=== PATIENT | female | born 1990 | race Caucasian/White ===

== ENCOUNTER 2017-09-02 06:22 | Inpatient (IN) ==
[2017-09-02] MEDS ORDERED: OXYTOCIN/LR 20 UNIT/1,000 ML BAG IV SCH (07:30)
[2017-09-02] MEDS ORDERED: BUTORPHANOL 1 MG/ML VIAL IV PRN (07:30)
[2017-09-02] MEDS ORDERED: ONDANSETRON 4 MG/2 ML VIAL IV PRN ×2 (07:30→19:53)
[2017-09-02] MEDS: LACTATED RINGERS 1,000 ML IV SCH ×3 (07:35→19:41)
[2017-09-02] MEDS: AMPICILLIN INJ 2,000 MG in SODIUM CHLORIDE 0.9% 100 ML IV SCH ×2 (08:14→14:31)
[2017-09-02 08:39] LABS: Basophils # 0.1 10*3/uL (0.0-0.2); Basophils % 0.3 % (0.0-0.8); Eosinophils # 0.1 10*3/uL (0.0-0.87); Eosinophils % 0.8 % (0.00-10.9); Hemoglobin 12.4 GM/DL (12.0-16.0); Immature Granulocytes % 1.9 %; Immature Granulocytes Absolute 0.28 #; Lymphocytes # 1.9 10*3/uL (1.4-4.0); Lymphocytes % 12.2 % (21.3-54.2); Mean Corpuscular HGB Conc 34.4 GM/DL (32-36); Mean Corpuscular Hemoglobin 31 PG (27-34); Mean Corpuscular Volume 90.9 FL (87-102); Mean Platelet Volume 9.9 FL (9.6-12.0); Monocytes % 6.4 % (1.7-12.7); Neutrophils # 11.9 10*3/uL (1.4-7.4); Neutrophils % 78.4 % (38.7-73.9); Platelet Count 274 T/CUMM (130-400); Red Blood Count 3.96 MC/CUMM (3.8-5.5); Red Cell Distribution Width 13.3 % (9.3-17.3); White Blood Count 15.1 T/CUMM (4-12)
[2017-09-02] MEDS ORDERED: CITRIC ACID/SODIUM CITRATE 30 ML UDCUP PO ONE (10:11)
[2017-09-02] MEDS ORDERED: PROMETHAZINE 25 MG/1 ML VIAL IM ONE (10:11)
[2017-09-02] MEDS ORDERED: diphenhydrAMINE 50 MG/1 ML VIAL IV PRN ×2 (10:11)
[2017-09-02] MEDS ORDERED: ePHEDrine 50 MG/ML AMP IV PRN (10:11)
[2017-09-02] MEDS ORDERED: hydrOXYzine HCL 25 MG/1 ML VIAL IM PRN (10:11)
[2017-09-02] MEDS ORDERED: FAMOTIDINE 20 MG/2 ML VIAL IV ONE (10:11)
[2017-09-02] MEDS ORDERED: ONDANSETRON 4 MG/2 ML VIAL IV ONE (10:11)
[2017-09-02] MEDS ORDERED: fentaNYL 2 MCG/ROPIV 0.2% EPID 150 ML EPIDURAL SCH (10:30)
[2017-09-02 19:14] LABS: Apearance,Urine CLEAR (Clear); Bilirubin,Urine Negative (Negative); Blood, Urine Moderate mg/dL (Negative); Glucose,Urine (UA) Negative (Negative); Ketones,Urine 80 mg/dL (Negative); Nitrite,Urine Negative (Negative); Protein,Urine Negative; RBC,Urine 4 /HPF (0-4); Squamous Epithelial Cell,Urine Occasional /HPF (0-10); Urine Color Yellow (Yellow); Urine Specific Gravity 1.011 (1.001-1.035); Urine Urobilinogen < 2.0 EU/DL (0.2-1.0); WBC,Urine 1 /HPF (0-6)
[2017-09-02] MEDS ORDERED: RHO(D) IMMUNE GLOBULIN 300 MCG SYRINGE IM ONE (19:53)
[2017-09-02] MEDS ORDERED: LANOLIN 50% CREAM 0.3 OZ TUBE TOP PRN (19:53)
[2017-09-02] MEDS ORDERED: BISACODYL 10 MG SUPP RECTAL PRN (19:53)
[2017-09-02] MEDS ORDERED: ACETAMINOPHEN 325 MG TABLET PO PRN (19:53)
[2017-09-02] MEDS ORDERED: OXYTOCIN/LR 20 UNIT/1,000 ML BAG IV ONE (19:53)
[2017-09-02] MEDS ORDERED: BENZOCAINE 20%/MENTHOL 0.5% SPRAY 56 GM CAN TOP PRN (19:53)
[2017-09-02] MEDS ORDERED: MEASLES/MUMPS/RUBELLA VACCINE 0.5 ML VIAL SUBCUT ONE (19:53)
[2017-09-02] MEDS ORDERED: WITCH HAZEL PADS 100/JAR TOP PRN (19:53)
[2017-09-02] MEDS ORDERED: oxyCODONE/ACETAMINOPHEN 5-325 MG TABLET PO PRN ×2 (19:53)
[2017-09-02] MEDS ORDERED: DIPH/TET/ACEL PERT BOOSTER VACCINE 0.5 ML VIAL IM ONE (19:53)
[2017-09-02] MEDS ORDERED: HYDROCORTISONE 2.5% RECTAL CREAM 30 GM TUBE TOP PRN (19:53)
[2017-09-03] MEDS: IBUPROFEN 800 MG TABLET PO PRN ×4 (00:46→18:27)
[2017-09-03 07:05] LABS: Basophils # 0.1 10*3/uL (0.0-0.2); Basophils % 0.3 % (0.0-0.8); Eosinophils # 0.2 10*3/uL (0.0-0.87); Eosinophils % 0.9 % (0.00-10.9); Hematocrit 31.1 VOL% (35.7-47.0); Hemoglobin 10.7 GM/DL (12.0-16.0); Immature Granulocytes % 1.2 %; Immature Granulocytes Absolute 0.22 #; Lymphocytes # 2.6 10*3/uL (1.4-4.0); Lymphocytes % 13.8 % (21.3-54.2); Mean Corpuscular HGB Conc 34.4 GM/DL (32-36); Mean Corpuscular Hemoglobin 32 PG (27-34); Mean Corpuscular Volume 91.7 FL (87-102); Mean Platelet Volume 9.7 FL (9.6-12.0); Monocytes # 1.2 10*3/uL (0.11-0.8); Monocytes % 6.1 % (1.7-12.7); Neutrophils # 14.6 10*3/uL (1.4-7.4); Neutrophils % 77.7 % (38.7-73.9); Platelet Count 231 T/CUMM (130-400); Red Blood Count 3.39 MC/CUMM (3.8-5.5); Red Cell Distribution Width 13.4 % (9.3-17.3); White Blood Count 18.7 T/CUMM (4-12)
[2017-09-03] MEDS: DOCUSATE SODIUM 100 MG CAPSULE PO SCH ×2 (09:00→20:53)
[2017-09-04 07:17] VITALS: BP 115/76
[2017-09-04] MEDS: DOCUSATE SODIUM 100 MG CAPSULE PO SCH (08:33)
== END 2017-09-04 11:35 | disposition home or self-care (01) | DRG 775 ==
LOC: N.LDOUT 06:22 → N.LD 06:24 → N.OB 22:52
PROVIDERS: ADMIT Obstetrics & Gynecology; ATTEND Obstetrics & Gynecology

== ENCOUNTER 2020-04-25 06:08 | Inpatient (IN) ==
[2020-04-25] MEDS ORDERED: BUTORPHANOL 1 MG/ML VIAL IV PRN (06:15)
[2020-04-25] MEDS ORDERED: ONDANSETRON 4 MG/2 ML VIAL IV PRN ×2 (06:15→17:25)
[2020-04-25] MEDS ORDERED: LACTATED RINGERS 1,000 ML IV ONE (06:15)
[2020-04-25] MEDS ORDERED: OXYTOCIN/LR 20 UNIT/1,000 ML BAG IV SCH (07:00)
[2020-04-25 07:12] LABS: Basophils # 0.1 10*3/uL (0.0-0.2); Basophils % 0.4 % (0.0-0.8); Eosinophils # 0.2 10*3/uL (0.0-0.87); Eosinophils % 1.3 % (0.00-10.9); Hematocrit 34.5 VOL% (35.7-47.0); Hemoglobin 11.9 GM/DL (12.0-16.0); Immature Granulocytes % 2.3 %; Immature Granulocytes Absolute 0.27 #; Lymphocytes # 1.5 10*3/uL (1.4-4.0); Mean Corpuscular HGB Conc 34.5 GM/DL (32-36); Mean Corpuscular Volume 91.8 FL (87-102); Mean Platelet Volume 9.3 FL (9.6-12.0); Monocytes % 7.1 % (1.7-12.7); Neutrophils % 75.9 % (38.7-73.9); Platelet Count 212 T/CUMM (130-400); Red Blood Count 3.76 MC/CUMM (3.8-5.5); Red Cell Distribution Width 13.1 % (9.3-17.3); White Blood Count 11.9 T/CUMM (4-12)
[2020-04-25] MEDS: LACTATED RINGERS 1,000 ML IV SCH ×2 (07:19→10:12)
[2020-04-25 07:50] LABS: Alanine Aminotransferase 14 U/L (13-56); Albumin 2.7 G/DL (3.4-5.0); Alkaline Phosphatase 122 U/L (45-117); Aspartate Amino Transferase 12 U/L (0-37); Bilirubin,Total < 0.39 MG/DL (0.2-1.0); Blood Urea Nitrogen 7 MG/DL (7-18); Calcium 8.7 MG/DL (8.5-10.1); Estimated Glom Filtration Rate 127 ML/MIN; Glucose 76 MG/DL (74-106); Osmolality,Calculated 275.4 MOS/KG (273-304); Total Protein 6.4 G/DL (6.4-8.3)
[2020-04-25] MEDS ORDERED: ePHEDrine 50 MG/ML VIAL IV PRN (09:20)
[2020-04-25] MEDS ORDERED: NALOXONE 0.4 MG/ML VIAL IV PRN (09:20)
[2020-04-25] MEDS ORDERED: FAMOTIDINE 20 MG/2 ML VIAL IV ONE (09:21)
[2020-04-25] MEDS ORDERED: CITRIC ACID/SODIUM CITRATE 30 ML UDCUP PO ONE (09:21)
[2020-04-25] MEDS ORDERED: fentaNYL 2 MCG/ROPIV 0.2% EPID 100 ML EPIDURAL SCH (09:30)
[2020-04-25 13:42] LABS: Urine Appearance Clear (Clear); Urine Color Light Yellow (Yellow); Urine Specific Gravity 1.005 (1.001-1.035)
[2020-04-25 13:44] LABS: Glucose,Urine (UA) Negative (Negative); Ketones,Urine Negative (Negative); Protein,Urine Negative
[2020-04-25 13:45] LABS: Bilirubin,Urine Negative (Negative); Blood, Urine Negative (Negative); Nitrite,Urine Negative (Negative); Urine Urobilinogen < 2.0 EU/DL (0.2-1.0)
[2020-04-25] MEDS ORDERED: TRANEXAMIC ACID 1,000 MG/10 ML VIAL ONE (15:46)
[2020-04-25] MEDS ORDERED: CARBOPROST TROMETHAMINE 250 MCG/ML AMP IM ONE (15:46)
[2020-04-25] MEDS ORDERED: METHYLERGONOVINE 0.2 MG/1 ML AMP ONE (15:46)
[2020-04-25] MEDS ORDERED: miSOPROStoL 200 MCG TABLET ONE (15:46)
[2020-04-25] MEDS ORDERED: OXYTOCIN 10 UNIT/ML VIAL ONE (15:47)
[2020-04-25] MEDS ORDERED: miSOPROStoL 200 MCG TABLET PO ONE (17:06)
[2020-04-25 17:17] LABS: Cord Venous Blood HCO3 20.9 MMOL/L; Cord Venous Blood PCO2 40.2 MMHG; Cord Venous Blood PO2 27.7
[2020-04-25] MEDS ORDERED: IBUPROFEN 800 MG TABLET PO ONE (17:19)
[2020-04-25] MEDS ORDERED: RHO(D) IMMUNE GLOBULIN 300 MCG SYRINGE IM ONE (17:25)
[2020-04-25] MEDS ORDERED: oxyCODONE/ACETAMINOPHEN 5-325 MG TABLET PO PRN ×2 (17:25)
[2020-04-25] MEDS ORDERED: ACETAMINOPHEN 325 MG TABLET PO PRN ×2 (17:25→17:36)
[2020-04-25] MEDS ORDERED: BISACODYL 10 MG SUPP RECTAL PRN (17:25)
[2020-04-25] MEDS ORDERED: OXYTOCIN/LR 20 UNIT/1,000 ML BAG IV ONE (17:25)
[2020-04-25] MEDS ORDERED: MEASLES/MUMPS/RUBELLA VACCINE 0.5 ML VIAL SUBCUT ONE (17:25)
[2020-04-25] MEDS ORDERED: DIPH/TET/ACEL PERT BOOSTER VACCINE 0.5 ML VIAL IM ONE (17:25)
[2020-04-25] MEDS ORDERED: BENZOCAINE 20%/MENTHOL 0.5% SPRAY 56 GM CAN TOP PRN (17:25)
[2020-04-25] MEDS ORDERED: HYDROCORTISONE 2.5% RECTAL CREAM 30 GM TUBE TOP PRN (17:25)
[2020-04-25] MEDS ORDERED: LANOLIN 50% CREAM 0.3 OZ TUBE TOP PRN (17:25)
[2020-04-25] MEDS ORDERED: WITCH HAZEL PADS 100/JAR TOP PRN (17:25)
[2020-04-25] MEDS ORDERED: MEPERIDINE 50 MG/1 ML VIAL IV ONE (17:41)
[2020-04-25] MEDS ORDERED: MEPERIDINE 50 MG/1 ML VIAL ONE (17:42)
[2020-04-25] MEDS: DOCUSATE SODIUM 100 MG CAPSULE PO SCH (22:11)
[2020-04-26] MEDS: IBUPROFEN 800 MG TABLET PO PRN ×3 (01:49→16:56)
[2020-04-26 04:49] LABS: Basophils % 0.2 % (0.0-0.8); Eosinophils # 0.2 10*3/uL (0.0-0.87); Hematocrit 35.8 VOL% (35.7-47.0); Hemoglobin 11.4 GM/DL (12.0-16.0); Immature Granulocytes % 1.2 %; Immature Granulocytes Absolute 0.19 #; Lymphocytes # 2.1 10*3/uL (1.4-4.0); Lymphocytes % 13.6 % (21.3-54.2); Mean Corpuscular HGB Conc 31.8 GM/DL (32-36); Mean Corpuscular Volume 96.5 FL (87-102); Mean Platelet Volume 9.3 FL (9.6-12.0); Monocytes % 5.7 % (1.7-12.7); Neutrophils % 78.3 % (38.7-73.9); Platelet Count 230 T/CUMM (130-400); Red Blood Count 3.71 MC/CUMM (3.8-5.5); White Blood Count 15.6 T/CUMM (4-12)
[2020-04-26] MEDS: DOCUSATE SODIUM 100 MG CAPSULE PO SCH (10:05)
[2020-04-26 14:12] VITALS: BP 121/59
== END 2020-04-26 18:15 | disposition home or self-care (01) | DRG 807 ==
LOC: N.LD 06:08 → N.OB 21:45
PROVIDERS: ADMIT Obstetrics & Gynecology; ATTEND Obstetrics & Gynecology

== ENCOUNTER 2022-01-05 06:07 | Inpatient (IN) ==
[2022-01-05] MEDS ORDERED: LACTATED RINGERS 500 ML IV PRN (06:35)
[2022-01-05] MEDS ORDERED: BUTORPHANOL 2 MG/ML VIAL IV PRN (06:35)
[2022-01-05] MEDS ORDERED: miSOPROStoL 200 MCG TABLET RECTAL PRN (06:35)
[2022-01-05] MEDS ORDERED: LACTATED RINGERS 250 ML IV ONE (06:35)
[2022-01-05] MEDS ORDERED: METHYLERGONOVINE 0.2 MG/1 ML AMP IM PRN (06:35)
[2022-01-05] MEDS ORDERED: OXYTOCIN/LR 20 UNIT/1,000 ML BAG IV ONE ×2 (06:35→18:36)
[2022-01-05] MEDS ORDERED: MEPERIDINE 50 MG/1 ML VIAL IV PRN (06:35)
[2022-01-05] MEDS ORDERED: ONDANSETRON 4 MG/2 ML VIAL IV PRN ×2 (06:35→18:36)
[2022-01-05] MEDS ORDERED: TRANEXAMIC ACID 1,000 MG in SODIUM CHLORIDE 0.9% 100 ML IV PRN (06:35)
[2022-01-05] MEDS ORDERED: CARBOPROST TROMETHAMINE 250 MCG/ML AMP IM PRN (06:35)
[2022-01-05] MEDS: LACTATED RINGERS 1,000 ML IV SCH ×2 (06:40→14:22)
[2022-01-05 07:24] LABS: Basophils % 0.2 % (0.0-0.8); Eosinophils # 0.1 10*3/uL (0.0-0.87); Eosinophils % 0.8 % (0.00-10.9); Hematocrit 34.9 VOL% (35.7-47.0); Hemoglobin 11.7 GM/DL (12.0-16.0); Immature Granulocytes % 1.2 %; Lymphocytes # 1.5 10*3/uL (1.4-4.0); Mean Corpuscular HGB Conc 33.5 GM/DL (32-36); Mean Corpuscular Volume 93.3 FL (87-102); Mean Platelet Volume 9.4 FL (9.6-12.0); Monocytes # 0.5 10*3/uL (0.11-0.8); Monocytes % 6.3 % (1.7-12.7); Neutrophils % 73.5 % (38.7-73.9); Platelet Count 248 T/CUMM (130-400); Red Blood Count 3.74 MC/CUMM (3.8-5.5); Red Cell Distribution Width 13.1 % (9.3-17.3); White Blood Count 8.4 T/CUMM (4-12)
[2022-01-05] MEDS ORDERED: OXYTOCIN/LR 20 UNIT/1,000 ML BAG IV SCH (11:30)
[2022-01-05] MEDS ORDERED: LACTATED RINGERS 1,000 ML IV ONE (12:32)
[2022-01-05] MEDS ORDERED: ePHEDrine 50 MG/ML VIAL IV PRN (12:32)
[2022-01-05] MEDS ORDERED: CITRIC ACID/SODIUM CITRATE 30 ML UDCUP PO ONE (12:32)
[2022-01-05] MEDS ORDERED: FAMOTIDINE 20 MG/2 ML VIAL IV ONE (12:32)
[2022-01-05] MEDS ORDERED: PROMETHAZINE 25 MG/1 ML VIAL IM ONE (12:33)
[2022-01-05] MEDS ORDERED: NALOXONE 0.4 MG/ML VIAL IV PRN (12:33)
[2022-01-05] MEDS ORDERED: hydrOXYzine HCL 25 MG/1 ML VIAL IM PRN (12:33)
[2022-01-05] MEDS ORDERED: diphenhydrAMINE 50 MG/1 ML VIAL IV PRN ×2 (12:33)
[2022-01-05] MEDS ORDERED: fentaNYL 2 MCG/ROPIV 0.2% EPID 100 ML EPIDURAL SCH (13:00)
[2022-01-05] MEDS ORDERED: LACTATED RINGERS 1,000 ML IV SCH (13:00)
[2022-01-05 15:02] LABS: Bacteria,Urine Occasional /HPF (Few); Mucus,Urine Occasional /LPF (Occasional); RBC,Urine <1 /HPF (0-4)
[2022-01-05 15:03] LABS: Bilirubin,Urine Negative (Negative); Blood, Urine Negative (Negative); Glucose,Urine (UA) Negative (Negative); Ketones,Urine 40 mg/dL (Negative); Nitrite,Urine Negative (Negative); Protein,Urine Negative (Negative); Urine Appearance Clear (Clear); Urine Color Yellow (Yellow); Urine Specific Gravity 1.015 (1.001-1.035); Urine Urobilinogen 0.2 eU/dL (<2.0); Urine pH 7.5 (4.5-8.0)
[2022-01-05 18:35] LABS: Cord Arterial Blood HCO3 20.1 MMOL/L
[2022-01-05] MEDS ORDERED: RHO(D) IMMUNE GLOBULIN 300 MCG SYRINGE IM ONE (18:36)
[2022-01-05] MEDS ORDERED: HYDROCORTISONE 2.5% RECTAL CREAM 30 GM TUBE TOP PRN (18:36)
[2022-01-05] MEDS ORDERED: BISACODYL 10 MG SUPP RECTAL PRN (18:36)
[2022-01-05] MEDS ORDERED: oxyCODONE/ACETAMINOPHEN 5-325 MG TABLET PO PRN ×2 (18:36)
[2022-01-05] MEDS ORDERED: MEASLES/MUMPS/RUBELLA VACCINE 0.5 ML VIAL SUBCUT ONE (18:36)
[2022-01-05] MEDS ORDERED: DIPH/TET/ACEL PERT BOOSTER VACCINE 0.5 ML VIAL IM ONE (18:36)
[2022-01-05] MEDS ORDERED: WITCH HAZEL PADS 100/JAR TOP PRN (18:36)
[2022-01-05] MEDS ORDERED: BENZOCAINE 20%/MENTHOL 0.5% SPRAY 56 GM CAN TOP PRN (18:36)
[2022-01-05] MEDS ORDERED: ACETAMINOPHEN 325 MG TABLET PO PRN (18:36)
[2022-01-05] MEDS ORDERED: LANOLIN 50% CREAM 0.3 OZ TUBE TOP PRN (18:36)
[2022-01-05 18:38] LABS: Cord Venous Blood HCO3 20.4 MMOL/L; Cord Venous Blood PCO2 42.2 MMHG
[2022-01-06] MEDS: IBUPROFEN 800 MG TABLET PO PRN ×3 (04:20→19:50)
[2022-01-06 05:38] LABS: Basophils % 0.2 % (0.0-0.8); Eosinophils # 0.1 10*3/uL (0.0-0.87); Eosinophils % 0.6 % (0.00-10.9); Hematocrit 31.7 VOL% (35.7-47.0); Hemoglobin 10.8 GM/DL (12.0-16.0); Immature Granulocytes Absolute 0.11 #; Lymphocytes # 1.7 10*3/uL (1.4-4.0); Lymphocytes % 14.9 % (21.3-54.2); Mean Corpuscular HGB Conc 34.1 GM/DL (32-36); Mean Corpuscular Volume 91.9 FL (87-102); Mean Platelet Volume 9.4 FL (9.6-12.0); Monocytes # 0.7 10*3/uL (0.11-0.8); Monocytes % 6.1 % (1.7-12.7); Neutrophils % 77.2 % (38.7-73.9); Platelet Count 208 T/CUMM (130-400); Red Blood Count 3.45 MC/CUMM (3.8-5.5); Red Cell Distribution Width 13.1 % (9.3-17.3); White Blood Count 11.1 T/CUMM (4-12)
[2022-01-06] MEDS: MULTIVITAMIN (PRENATAL) TABLET PO SCH (08:29)
[2022-01-06] MEDS: DOCUSATE SODIUM 100 MG CAPSULE PO SCH ×3 (08:29→22:30)
[2022-01-07] MEDS: DOCUSATE SODIUM 100 MG CAPSULE PO SCH (08:24)
[2022-01-07] MEDS: MULTIVITAMIN (PRENATAL) TABLET PO SCH (08:24)
[2022-01-07] MEDS: IBUPROFEN 800 MG TABLET PO PRN (08:25)
[2022-01-07 09:22] VITALS: BP 113/70
== END 2022-01-07 11:55 | disposition home or self-care (01) | DRG 807 ==
LOC: N.LD 06:07 → N.OB 22:40
PROVIDERS: ADMIT Obstetrics & Gynecology; ATTEND Obstetrics & Gynecology